=== PATIENT | male | born 1990 | race African-American/Black ===

== ENCOUNTER 2016-06-07 18:18 | Emergency (ER) | payer OTHER ==
[~2016-06-07] VITALS: Ht 180.3 cm; Wt 87.0 kg
[2016-06-07 18:49] VITALS: BP 141/94; PULSE 105; TEMP 98.7
[2016-06-07 20:20] LABS: PH 6 (5-8); SQUAMOUS EPITHELIAL 0-2 /hpf; URINE APPEARANCE Hazy; URINE BACTERIA Rare /hpf; URINE BILIRUBIN Negative (NEGATIVE); URINE BLOOD 1+ (NEGATIVE); URINE COLOR Yellow; URINE GLUCOSE Negative (NEGATIVE); URINE KETONE Negative (NEGATIVE); URINE UROBILINOGEN Negative (NEGATIVE); URINE WBC >50 /hpf
[2016-06-07 23:21] LABS: CHLAMYDIA/TRACH by PCR Male Not Detected; Neisseria Gon by PCR Male Detected
== END 2016-06-07 21:47 | disposition home or self-care (01) ==
LOC: COL.ER 18:18
PROVIDERS: Emergency Medicine; Nurse Practitioner
DX: N34.2 Other urethritis (principal)
CPT/HCPCS: J0696